=== PATIENT | female | born 1965 | race Caucasian/White ===

== ENCOUNTER 2016-10-29 10:38 | Emergency (ER) | payer MEDICAID ==
[2016-10-29 10:50] VITALS: BP 111/96
[2016-10-29] MEDS ORDERED: DEXAMETHASONE SOD PHOSPHATE INJ 4 MG/1 ML VIAL IM ONE (11:24)
--- NOTE | 2016-10-29 11:29 | ER Document Report ---
HPI - HPI Patient complains to provider of: hand pain Onset: Other - last week Quality of pain: Achy, Burning Severity: Severe Pain Level: 4 Context: Patient presents to the ED with c/o bilateral hand pain. She reports 2 weeks ago she was painting and cleaning her hand with some gasoline. The next week she was cleaning blinds with an unknown chemical in a spray bottle. She was informed someone had watered the chemical down. She reports her hand started blistering after that, she cleaned her hands with alcohol. Her hands are very dried out now and scaling. She reports painful. She denies other symptoms such as fever vomiting diarrhea. She reports she is unaware of allergies to any chemicals. Associated Symptoms: None Exacerbated by: Denies Relieved by: Denies Similar symptoms previously: No Recently seen / treated by doctor: No - REPRODUCTIVE Reproductive: DENIES: : - DERM Skin Color: Normal Past Medical History - General Information source: Patient - Social History Smoking Status: Current Every Day Smoker Cigarette use (# per day): Yes Frequency of alcohol use: None Drug Abuse: None Family History: None Patient has suicidal ideation: No - Past Medical History Cardiac Medical History: Reports: Hx Atrial Fibrillation, Hx Heart Attack Pulmonary Medical History: Reports: Hx Asthma Renal/ Medical History: Denies: Hx Peritoneal Dialysis Psychiatric Medical History: Reports: Hx Bipolar Disorder, Hx Post Traumatic Stress Disorder Past Surgical History: Reports: Hx Cardiac Surgery, Hx Cholecystectomy, Hx Pacemaker - Immunizations Hx Diphtheria, Pertussis, Tetanus Vaccination: No Vertical Provider Document - CONSTITUTIONAL Agree With Documented VS: Yes Exam Limitations: No Limitations General Appearance: WD/WN, Mild Distress - emotionally upset - INFECTION CONTROL TRAVEL OUTSIDE OF THE [place] IN LAST 30 DAYS: No - HEENT HEENT: Atraumatic, Normocephalic - NECK Neck: Supple - RESPIRATORY Respiratory: Breath Sounds Normal, No Respiratory Distress O2 Sat by Pulse Oximetry: 98 - CARDIOVASCULAR Cardiovascular: Regular Rate - MUSCULOSKELETAL/EXTREMETIES Musculoskeletal/Extremeties: MAEW, FROM, Tender - Bilateral hands tender to palpation. Patient skin looks dried out with areas of peeling- no erythema warmth or signs of infection - NEURO Level of Consciousness: Awake, Alert, Appropriate Motor/Sensory: No Motor Deficit - DERM Integumentary: Warm, Dry Course - Re-evaluation Re-evalutation: 10/29/16 11:55 Patient instructed on avoiding chemicals that irritated her skin, she was also instructed on keeping the barrier cream on. Verbalized understanding to all instructions. - Vital Signs Vital signs: Temp Pulse Resp BP Pulse Ox 98.0 F 86 20 111/96 H 98 10/29/16 10:48 10/29/16 10:48 10/29/16 10:48 10/29/16 10:48 10/29/16 10:48 Discharge - Discharge Clinical Impression: Bilateral hand pain Condition: Stable Disposition: HOME, SELF-CARE Instructions: Steroid Medication Injection, Contact Dermatitis ([facility]) Additional Instructions: *You have been treated for bilateral hand pain, contact dermatitis *Monitor your hands for signs of infection such as increasing pain, redness, swelling, warmth *Keep your hands coated with lotion, barrier cream *Avoid chemicals to your hands *Follow up with a primary care provider within one week for recheck *Return to ED for signs of infection, worsening condition, changes, needs
== END 2016-10-29 11:45 | disposition home or self-care (01) ==
LOC: ER 10:38
DX: M79.641 Pain in right hand (principal); M79.642 Pain in left hand; F17.210 Nicotine dependence, cigarettes, uncomplicated; J45.909 Unspecified asthma, uncomplicated; I25.2 Old myocardial infarction; I48.91 Unspecified atrial fibrillation; Z95.0 Presence of cardiac pacemaker
CPT/HCPCS: 99283; 96372; J1100